=== PATIENT | male | born 1980 | race Caucasian/White ===

== ENCOUNTER 2017-12-20 22:32 | Emergency (ER) | payer OTHER ==
[2017-12-20] MEDS: LORAZEPAM 2 MG INJ IV (23:24)
[2017-12-20] MEDS: SOD CHLORIDE 0.9% 500 ML IV (23:25)
[2017-12-20 23:35] LABS: ADD MAN DIFF? NO
[2017-12-20 23:37] LABS: BASOPHILS % 0.5 % (0.0-2.0); EOSINOPHILS # 0.1 10^3/ul (0.0-0.5); EOSINOPHILS % 1.6 % (0.0-7.0); HEMATOCRIT 47.3 % (42.0-52.0); HEMOGLOBIN 16.7 g/dl (14.0-18.0); LYMPHOCYTES # 2.3 10^3/ul (0.8-2.9); LYMPHOCYTES % 28.1 % (15.0-51.0); MEAN CORPUSCULAR HEMOGLOBIN 30.5 pg (29.0-33.0); MEAN CORPUSCULAR HGB CONC 35.3 g/dl (32.0-37.0); MEAN CORPUSCULAR VOLUME 86.5 fl (82.0-101.0); MEAN PLATELET VOLUME 9.5 fl (7.4-10.4); MONOCYTE # 0.5 10^3/ul (0.3-0.9); NEUTROPHIL # 5.1 10^3/ul (1.6-7.5); NEUTROPHILS % 63.6 % (39.0-77.0); PLATELET COUNT 158 10^3/UL (140-415); RED BLOOD COUNT 5.47 10^6/ul (4.70-6.10)
[2017-12-20 23:37] LABS: WHITE BLOOD COUNT 8.1 10^3/ul (4.8-10.8)
[2017-12-20 23:53] LABS: ALANINE AMINOTRANSFERASE 113 IU/L (13-69); ALBUMIN 4.6 g/dl (3.3-4.9); ALBUMIN/GLOBULIN RATIO 1.35; ALKALINE PHOSPHATASE 171 IU/L (42-121); ANION GAP 10 (8-16); ASPARTATE AMINO TRANSFERASE 63 IU/L (15-46); BILIRUBIN,INDIRECT 0.8 mg/dl (0-1.1); BILIRUBIN,TOTAL 0.8 mg/dl (0.2-1.3); BLOOD UREA NITROGEN 11 mg/dl (7-20); CALCIUM 9.4 mg/dl (8.4-10.2); CARBON DIOXIDE 30 mmol/L (21-31); CHLORIDE 106 mmol/L (97-110); CREATININE 0.91 mg/dl (0.61-1.24); GLUCOSE 112 mg/dl (70-220); POTASSIUM 3.5 mmol/L (3.5-5.1); SODIUM 142 mmol/L (135-144)
[2017-12-21 00:06] LABS: TROPONIN-I < 0.010 ng/ml (0.000-0.120)
[2017-12-21 00:25] LABS: ACETAMINOPHEN < 10.0 ug/ml (10.0-30.0); ETHANOL < 10.0 mg/dl; SALICYLATE < 1.0 mg/dl (5.0-30.0)
== END 2017-12-21 01:49 | disposition home or self-care (01) ==
LOC: E/R 12-21 01:49
DX: R00.2 Palpitations (principal); R40.2142 Coma scale, eyes open, spontaneous, at arrival to emergency department; R40.2252 Coma scale, best verbal response, oriented, at arrival to emergency department; R40.2362 Coma scale, best motor response, obeys commands, at arrival to emergency department; F17.210 Nicotine dependence, cigarettes, uncomplicated
CPT/HCPCS: 36415; 71045; 80053; 80307; 84484; 85025; 93005; 96374; 99285-25